=== PATIENT | male | born 1950 | race Caucasian/White ===

== ENCOUNTER → 2018-06-22 00:38 | Outpatient (CLI) | payer OTHER, SELFPAY ==
--- NOTE | 2018-06-22 07:45 | DI.REPORT_ITS ---
SYMPTOM/DIAGNOSIS: ? LIVER ENLARGED, ABD PAIN, R10.9 ABDOMINAL ULTRASOUND: Routine examination. Comparison CT is 09/14/16. Comparison ultrasound is The aorta and IVC are unremarkable. The liver has a normal appearance sonographically. The gallbladder is negative sonographically. There is a negative sonographic Brandt's sign. The common duct, kidneys and spleen are unremarkable except for bilateral renal cysts. The largest cyst is seen in the left kidney and measures 3.7 cm. Incidental note is made of a small accessory spleen measuring 1 cm. This was present on the CT scan from 09/14/16. The pancreas was not well visualized due to overlying bowel. IMPRESSION: No evidence of hepatomegaly. 2. Bilateral renal cysts.
== END ==
PROVIDERS: PCP Emergency Medicine; Visit Provider Emergency Medicine
DX: R10.9 Unspecified abdominal pain (principal); N28.1 Cyst of kidney, acquired
CPT/HCPCS: 76700

== ENCOUNTER 2018-12-15 10:31 | Outpatient (CLI) | payer OTHER, SELFPAY ==
[2018-12-15 13:32] LABS: Anion Gap 9.4 mmol/L (3-11); BUN 17 mg/dL (7-18); CO2 28.6 mmol/L (21.0-32.0); CREATININE 1.01 mg/dL (0.70-1.30); Calcium 9.2 mg/dL (8.5-10.1); Chloride 102 mmol/L (98-107); Glucose 115 mg/dL (70-100); Potassium 4.3 mmol/L (3.5-5.1); Sodium 140 mmol/L (136-145); Uric Acid 4.7 mg/dL (3.5-7.2)
== END 2018-12-15 10:51 ==
PROVIDERS: PCP Emergency Medicine; Visit Provider Emergency Medicine
DX: I10 Essential (primary) hypertension (principal); M10.9 Gout, unspecified
CPT/HCPCS: 36415; 80048; 84550

== ENCOUNTER 2019-04-30 01:33 | Outpatient (CLI) | payer OTHER, SELFPAY ==
--- NOTE | 2019-04-30 11:00 | DI.US_ITS ---
SYMPTOM/DIAGNOSIS: F/U STONE, N20.0 RENAL ULTRASOUND: Comparison is made with 06/22/18. The right kidney measures 10.4 cm. long. The left kidney measures 10.7 cm. long. There are again seen multiple bilateral renal cysts, the largest on the right measures 2.6 by 3.2 by 2.7 cm. The largest on the left measures 3.4 by 4.1 by 3.2 cm. No solid renal mass, calculi or obstruction is seen. There is symmetric blood flow to the kidneys. The prevoid urinary bladder volume is 67 cc's. Both ureteral jets were visualized. The postvoid urinary bladder volume is 35 cc's. The prostatic volume is 78 cc's. IMPRESSION: 1. Bilateral renal cysts. 2. Enlarged prostate gland.
== END 2019-04-30 01:53 ==
PROVIDERS: PCP Emergency Medicine; Visit Provider Urology
DX: N20.0 Calculus of kidney (principal); N40.0 Benign prostatic hyperplasia without lower urinary tract symptoms; N28.1 Cyst of kidney, acquired
CPT/HCPCS: 76770

== ENCOUNTER 2019-06-22 09:41 | Outpatient (CLI) | payer OTHER, SELFPAY ==
[2019-06-22 11:39] LABS: Hemoglobin A1C 5.7 % (4.5-6.2)
[2019-06-23 09:59] LABS: PSA, Diagnostic 1.7 ng/ml (0-4.5)
== END 2019-06-22 10:01 ==
PROVIDERS: PCP Emergency Medicine; Visit Provider Emergency Medicine
DX: Z00.00 Encounter for general adult medical examination without abnormal findings (principal); E11.9 Type 2 diabetes mellitus without complications; C61 Malignant neoplasm of prostate
CPT/HCPCS: 36415; 83036; 84153

== ENCOUNTER 2019-08-03 07:54 | Outpatient (CLI) | payer OTHER, SELFPAY ==
[2019-08-03 09:23] LABS: Calculated LDL 167 mg/dL; Cholesterol 243 mg/dL (50-200); HDL Cholesterol 67 mg/dL (40-60); Triglyceride 48 mg/dL (30-150)
== END 2019-08-03 08:14 ==
PROVIDERS: PCP Emergency Medicine; Visit Provider Emergency Medicine
DX: Z00.00 Encounter for general adult medical examination without abnormal findings (principal); Z13.220 Encounter for screening for lipoid disorders
CPT/HCPCS: 36415; 80061

== ENCOUNTER 2019-12-21 07:00 | Outpatient (CLI) | payer OTHER, SELFPAY ==
[2019-12-21 13:26] LABS: TSH 0.71 uIU/mL (0.36-3.74)
== END 2019-12-21 07:20 ==
PROVIDERS: PCP Emergency Medicine; Visit Provider Emergency Medicine
DX: E03.9 Hypothyroidism, unspecified (principal)
CPT/HCPCS: 36415; 84443

== ENCOUNTER 2020-05-12 03:54 | Outpatient (CLI) | payer OTHER, SELFPAY ==
--- NOTE | 2020-05-12 06:45 | DI.US_ITS ---
EXAM: US RENAL CLINICAL HISTORY: monitor known stones,BILAT KIDNEY STONES,N20.0 TECHNIQUE: Ultrasound performed using standard protocol. COMPARISON: CT RENAL COLIC WO CONTRAST from 09/14/2016 US US renal from 04/30/2019 FINDINGS: Renal ultrasound was performed according to the usual protocol. There are multiple bilateral renal c ysts as noted on prior studies which all appear to be simple cysts, largest is the left kidney measur ing about 4 cm in greatest diameter. There is no evidence of hydronephrosis. There are couple of tiny echogenic foci seen in each kidney but posterior acoustic shadowing is not seen to confirm renal calculi. Prostate is enlarged with prostatic volume estimated at 92 cc. Ureteral jets are noted bilaterally. Pre and postvoid bladder volume 191 cc and 27 cc respectively. IMPRESSION: No evidence of urinary tract obstruction. Multiple bilateral renal cysts, no renal calculi confirmed on this study. DATA REPOSITORY:
== END 2020-05-12 04:14 ==
PROVIDERS: PCP Emergency Medicine; Visit Provider Urology
DX: N20.0 Calculus of kidney (principal); N28.1 Cyst of kidney, acquired; N40.0 Benign prostatic hyperplasia without lower urinary tract symptoms
CPT/HCPCS: 76770

== ENCOUNTER 2020-06-23 20:43 | Outpatient (REF) | payer OTHER, MEDICARE, SELFPAY ==
[2020-06-23 22:07] LABS: Bilirubin, Total 0.6 mg/dL (0.2-1.0)
== END 2020-06-23 21:03 ==
LOC: LBN 20:43
PROVIDERS: PCP Emergency Medicine; Visit Provider Emergency Medicine
DX: R17 Unspecified jaundice (principal)
CPT/HCPCS: 82247

== ENCOUNTER 2021-01-29 11:52 | Outpatient (CLI) | payer OTHER, SELFPAY ==
--- NOTE | 2021-01-29 11:00 | DI.RAD_ITS ---
EXAM: XR FOOT RT COMPLETE CLINICAL HISTORY: R foot pain. TECHNIQUE: 2D digital imaging was performed. COMPARISON: No exams were available for comparison FINDINGS: There is no evidence of fracture or diastasis of the Lisfranc joint. There are advanced degenerative changes at metatarsophalangeal joint of the great toe. Sesamoid bone is noted on the medial aspect of the foot in the distal tibialis posterior tendon, just proximal to the navicular tuberosity. IMPRESSION: Advanced degenerative changes evident at the great toe metatarsophalangeal joint. DATA REPOSITORY: RADIATION DOSE DELIVERED:
== END 2021-01-29 11:53 | disposition home or self-care (01) ==
LOC: DIORS 11:52
PROVIDERS: PCP Emergency Medicine; Referring Provider Emergency Medicine; Visit Provider Physician Assistant
DX: M19.071 Primary osteoarthritis, right ankle and foot (principal)
CPT/HCPCS: 73630

== ENCOUNTER 2021-07-09 02:53 | Outpatient (CLI) | payer OTHER, SELFPAY ==
[2021-07-09 10:57] LABS: Anion Gap 10.5 mmol/L (3-11); BUN 12 mg/dL (7-18); CO2 24.5 mmol/L (21.0-32.0); CREATININE 0.9 mg/dL (0.70-1.30); Calcium 8.7 mg/dL (8.5-10.1); Chloride 101 mmol/L (98-107); Glucose 111 mg/dL (74-106); Potassium 4.1 mmol/L (3.5-5.1); Sodium 136 mmol/L (136-145); Uric Acid 4.7 mg/dL (3.5-7.2)
== END 2021-07-09 02:54 | disposition home or self-care (01) ==
LOC: LBO 02:53
PROVIDERS: PCP Emergency Medicine; Visit Provider Emergency Medicine
DX: I10 Essential (primary) hypertension (principal); M10.9 Gout, unspecified
CPT/HCPCS: 36415; 80048; 84550

== ENCOUNTER 2023-01-09 02:59 | Outpatient (CLI) | payer OTHER, SELFPAY ==
[2023-01-09 09:55] LABS: HCT 44.8 % (40.0-50.0); HGB 14.7 g/dL (13.5-17.5); MCH 30.6 pg (27.0-33.0); MCHC 32.8 % (32.0-36.0); MCV 93 fL (80-95); MPV 10.1 fL (8.0-11.0); Platelet Count 275 10^3/uL (130-400); RBC 4.81 10^6/uL (4.36-5.78); RDW 13.2 % (11.8-14.1); RDW-SD 45.2 fL; WBC 7.08 10^3/uL (4.4-10.8)
[2023-01-09 11:23] LABS: ALT 19 U/L (16-63); AST 13 U/L (15-37); Alkaline Phosphatase 73 U/L (46-116); Anion Gap 9.2 mmol/L (3-11); BUN 19 mg/dL (7-18); Bilirubin, Total 0.5 mg/dL (0.2-1.0); CO2 27.8 mmol/L (21.0-32.0); Calcium 9.1 mg/dL (8.5-10.1); Calculated LDL 171 mg/dL (<100); Chloride 105 mmol/L (98-107); Cholesterol 251 mg/dL (<200); Estimated GFR 80.97 (mL/min/1.73m2); Glucose 117 mg/dL (74-106); HDL Cholesterol 68 mg/dL (40-60); Potassium 4.2 mmol/L (3.5-5.1); Sodium 142 mmol/L (136-145); TSH (W/Ref FT4) 0.85 uIU/mL (0.36-3.74); Total Protein 7.2 g/dL (6.4-8.2); Triglyceride 64 mg/dL (<150)
[2023-01-09 18:09] LABS: PSA, Screening 1.1 ng/mL (<=6.5)
== END 2023-01-09 03:00 | disposition home or self-care (01) ==
LOC: LBO 02:59
PROVIDERS: PCP Nurse Practitioner Family; Visit Provider Nurse Practitioner Family
DX: Z00.00 Encounter for general adult medical examination without abnormal findings (principal); E78.5 Hyperlipidemia, unspecified; I10 Essential (primary) hypertension; E04.2 Nontoxic multinodular goiter; E05.90 Thyrotoxicosis, unspecified without thyrotoxic crisis or storm; M10.9 Gout, unspecified; G47.33 Obstructive sleep apnea (adult) (pediatric); R31.9 Hematuria, unspecified; Z12.5 Encounter for screening for malignant neoplasm of prostate
CPT/HCPCS: 36415; 80053; 80061; 84153; 85027; 84443

== ENCOUNTER 2023-01-09 15:12 | Outpatient (CLI) | payer OTHER, SELFPAY ==
--- NOTE | 2023-01-09 | DI.RAD_ITS ---
Exam(s) XR RIBS LT W PA LAT CHEST EXAM: XR RIBS LT W PA LAT CHEST CLINICAL HISTORY: LT RIB PAIN, R07.81, FALL INJURY LT ANT RIB AT NIPPLE LINE, ? FX TECHNIQUE: 2D digital imaging was performed. Images are obtained. COMPARISON: CR PORTABLE CHEST ONE VIEW from 04/01/2016 FINDINGS: MEDIASTINUM: Normal. HEART: Normal. PULMONARY VASCULATURE: Normal. LUNGS: Clear. Note is again made of an azygos lobe. PLEURAL SPACE: No pleural effusion or pneumothorax. BONE:Within normal limits for the patient's age. LEFT RIBS: Normal. OTHER FINDINGS:Normal. IMPRESSION: 1. No acute pulmonary findings. 2. Unremarkable left ribs. DATA REPOSITORY: RADIATION DOSE DELIVERED:
--- NOTE | 2023-01-09 | DI.RAD_ITS ---
Exam(s) XR WRIST RT COMPL NAVICULAR EXAM: XR WRIST RT COMPL NAVICULAR CLINICAL HISTORY: PAIN RT WRIST, M25.531, FALL, PAIN BASE THENAR EMINENCE, BASE OF HAND. TECHNIQUE: 2D digital imaging was performed of the right wrist. Four views were obtained. Scaphoid, PA, lateral and oblique views were obtained. COMPARISON: No exams were available for comparison FINDINGS: BONES: No acute fracture is present. No bony destructive lesion is seen. JOINTS: The carpal bones are normally aligned. Moderate degenerative changes are seen at the 1st CMC joint with joint space narrowing and bony hypertrophy. SOFT TISSUE: Normal. IMPRESSION: No acute fracture or dislocation. DATA REPOSITORY: RADIATION DOSE DELIVERED:
== END 2023-01-09 15:32 ==
LOC: DI 15:13
PROVIDERS: PCP Nurse Practitioner Family; Visit Provider Physician Assistant Medical
DX: M25.531 Pain in right wrist (principal); M18.11 Unilateral primary osteoarthritis of first carpometacarpal joint, right hand; R07.81 Pleurodynia; W19.XXXA Unspecified fall, initial encounter
CPT/HCPCS: 71046; 71100; 73110

== ENCOUNTER 2024-01-06 05:19 | Outpatient (CLI) | payer OTHER, SELFPAY ==
[2024-01-06 10:22] LABS: HCT 43.5 % (40.0-50.0); HGB 14.1 g/dL (13.5-17.5); MCH 29.6 pg (27.0-33.0); MCHC 32.4 % (32.0-36.0); MCV 91 fL (80-95); Platelet Count 263 10^3/uL (130-400); RBC 4.76 10^6/uL (4.36-5.78); RDW-SD 44.1 fL; WBC 5.48 10^3/uL (4.4-10.8)
[2024-01-06 10:36] LABS: Hemoglobin A1C 5.6 % (<5.7)
[2024-01-06 11:32] LABS: Anion Gap 7.9 mmol/L (3-11); BUN 13 mg/dL (7-18); CO2 30.1 mmol/L (21.0-32.0); CREATININE 1.1 mg/dL (0.70-1.30); Calcium 9.4 mg/dL (8.5-10.1); Calculated LDL 217 mg/dL (<100); Chloride 104 mmol/L (98-107); Cholesterol 284 mg/dL (<200); Estimated GFR 71.77 (mL/min/1.73m2); Glucose 111 mg/dL (74-106); HDL Cholesterol 55 mg/dL (40-60); Potassium 4.3 mmol/L (3.5-5.1); Sodium 142 mmol/L (136-145); TSH (W/Ref FT4) 0.48 uIU/mL (0.36-3.74); Triglyceride 63 mg/dL (<150)
[2024-01-06 11:42] LABS: Uric Acid 4.7 mg/dL (3.5-7.2)
== END 2024-01-06 05:20 | disposition home or self-care (01) ==
LOC: LBO 05:19
PROVIDERS: PCP Nurse Practitioner Family; Visit Provider Nurse Practitioner Family
DX: I10 Essential (primary) hypertension (principal); M10.9 Gout, unspecified; K21.9 Gastro-esophageal reflux disease without esophagitis; E78.5 Hyperlipidemia, unspecified; G47.33 Obstructive sleep apnea (adult) (pediatric); E04.2 Nontoxic multinodular goiter
CPT/HCPCS: 36415; 80048; 80061; 85027; 83036; 84443; 84550

== ENCOUNTER 2024-11-08 20:45 | Emergency (ER) | payer OTHER, SELFPAY ==
[2024-11-08 20:55] VITALS: BP 159/64; PULSE 103; RESP 18; TEMP 36.2; O2SAT 99
[2024-11-08 21:15] VITALS: PULSE 90; RESP 16; O2SAT 99
--- NOTE | 2024-11-08 21:15 | W.ED.GENAD ---
Discharge Plan Disposition Patient Disposition: Home Discharge Details Clinical Impression: Upper back pain Primary Care Provider: Tata Phelps ED Provider: Janes Dietrich Home Meds and New Rx's Prescriptions: Continued vit C,E,Zn,Zy--ima-zeax 250-2.5-0.5 mg capsule 1 cap PO BID magnesium glycinate 100 mg tablet 400 mg PO BID colchicine [Colcrys] 0.6 mg tablet 0.6 mg PO BID Qty: 20 1RF tamsulosin 0.4 mg capsule 0.4 mg PO DAILY Qty: 90 3RF Probiotic 1 EACH capsule 1 ea PO DAILY Patient Comments: diphenhydramine HCl [Benadryl] 25 MG capsule 2 tab PO as directed Patient Comments: 01/16/18-PRN only/pps cholecalciferol (vitamin D3) 1,000 UNIT capsule 1,000 unit PO DAILY acetaminophen [Tylenol Extra Strength] 500 MG tablet 500 mg PO daily prn epinephrine [EpiPen 2-Skip] 0.3 mg/0.3 mL auto-injector 0.3 mg IM ONCE Qty: 1 4RF allopurinol [Zyloprim] 100 mg tablet 200 mg PO DAILY Qty: 180 3RF amlodipine 5 mg tablet 5 mg PO DAILY Qty: 90 4RF montelukast [Singulair] 10 mg tablet 10 mg PO HS Qty: 90 4RF Discharge Instructions Additional Instructions: He was seen in the emergency department for your upper back pain. As we discussed if you pass out develop chest pain shortness of breath or begin vomiting please return to the emergency department. Otherwise follow-up as needed with your primary care provider next week. HPI General Date/Time Provider Initiated Documentation: 11/08/24 21:15. HPI Narrative: MDM This is an overall very well-appearing afebrile and initially tachycardic 74-year-old male with transient upper back pain resolved reassuring against multiple dangerous pathologies for which patient will be discharged with empiric trial of expectant outpatient management. No chest pain to suggest ACS. I considered PE however the patient was not feeling short of breath and not having chest pain and used hypoxic so I felt that the risks of a D-dimer outweighed the benefits. No cough nor fevers to suggest pneumonia as I did not feel that the patient required a chest x-ray. No pain out of proportion to suggest necrotizing soft tissue infection. Patient had no nuchal rigidity so I was not suspicious for meningitis. No acute neurological deficits to suggest CVA so I did not feel the patient required an MRI nor would be a candidate for tPA. No rash to back to suggest zoster. No tearing chest pain to suggest aortic dissection. No vomiting to suggest increased risk for esophageal rupture. Equal breath sounds bilaterally & no trauma so my suspicion is low for pneumothorax. Patient is not a dialysis patient and in the absence of chest pain I am not suspicious for tamponade. On repeat assessment patient's heart rate had normalized to 90 without intervention. It is certainly possible that he could have had a musculoskeletal strain which responded to prehospital acetaminophen is administered by his . Alternatively it is possible that he had some transient irritation in his esophagus secondary to his pills causing referred pain. Patient and I discussed that he should return to the emergency department if he developed any chest pain shortness of breath fevers abdominal pain or if he could not tolerate p.o. Otherwise I advised PCP follow-up as needed next week. He understood his return indications. HPI This is a 74-year-old male with history of hypertension arrived to the emergency department in the setting of transient upper back pain. Patient reports that he took his home medications this evening and then developed pain in his upper back and neck. Says his pain was not radiating. He denies any recent trauma and any strenuous recent activities. His gave him some acetaminophen. He lie down and transiently felt short of breath but this improved his pain in his back. Shortness of breath resolved. He has had no recent fevers. He occasionally has a cough in the morning but has not had a persistent cough. He denies routine tobacco, ethanol, and illicits. He denies chest pain nausea and vomiting. No recent changes in his medications. No fevers dysuria or frequency. Exam General: Well-appearing in no acute distress speaking in complete sentences. Head: Normocephalic, atraumatic. Eye: Extraocular eye movements intact. No conjunctival injection. No scleral icterus. Ear, nose, mouth, throat: Grossly normal inspection. Normal voice, handling secretions normally. Neck: Trachea midline. No rash to neck. Cardiovascular: Well-perfused distal extremities. Back: No midline thoracic nor lumbar spinal tenderness. No step-offs. No deformities. Respiratory: Nonlabored respiration. Gastrointestinal: Nondistended abdomen. Musculoskeletal: No edema. Moving all 4 extremities spontaneously. Skin: Normal for age and race, grossly normal temperature and turgor. No acute rash. Neurologic: Alert and appropriate, no apparent acute deficits. GCS 15. 5 out of 5 bilateral upper extremity strength. Psychiatric: Mood and manner are appropriate. Grooming and personal hygiene are appropriate. Related Data Home Medications ?Medication ?Instructions ?Recorded ?Confirmed Lactobacillus acidophilus 10 1 ea PO DAILY 04/08/14 11/08/24 billion cell capsule (Probiotic) diphenhydramine HCl 25 mg capsule 2 tab PO as directed 04/16/16 11/08/24 (Benadryl) acetaminophen 500 mg tablet 500 mg PO daily prn 06/11/17 11/08/24 (Tylenol Extra Strength) cholecalciferol (vitamin D3) 25 1,000 unit PO DAILY 06/11/17 11/08/24 mcg (1,000 unit) capsule magnesium glycinate 100 mg (as 400 mg PO BID 06/22/19 11/08/24 glycinate) tablet vit 1 cap PO BID 06/22/19 11/08/24 C,E,zinc,St-aormm-3-lutein-zeaxanthin 250 mg-2.5 mg-0.5 mg capsule colchicine 0.6 mg tablet (Colcrys) 0.6 mg PO BID #20 tabs 08/03/19 11/08/24 epinephrine 0.3 mg/0.3 mL 0.3 mg (0.3 mL) IM ONCE #1 pen 05/14/22 11/08/24 injection, auto-injector (EpiPen 2-Skip) allopurinol 100 mg tablet 200 mg (2 x 100 mg) PO DAILY #180 01/06/24 11/08/24 (Zyloprim) tab-caps tamsulosin 0.4 mg capsule 0.4 mg PO DAILY #90 tab-caps 05/12/24 11/08/24 amlodipine 5 mg tablet 5 mg PO DAILY #90 tab-caps 08/05/24 11/08/24 montelukast 10 mg tablet 10 mg PO HS #90 tabs 08/05/24 11/08/24 (Singulair) Previous Rx's ?Medication ?Instructions ?Recorded colchicine 0.6 mg tablet (Colcrys) 0.6 mg PO BID #20 tabs 08/03/19 epinephrine 0.3 mg/0.3 mL 0.3 mg (0.3 mL) IM ONCE #1 pen 05/14/22 injection, auto-injector (EpiPen 2-Skip) allopurinol 100 mg tablet 200 mg (2 x 100 mg) PO DAILY #180 01/06/24 (Zyloprim) tab-caps tamsulosin 0.4 mg capsule 0.4 mg PO DAILY #90 tab-caps 05/12/24 amlodipine 5 mg tablet 5 mg PO DAILY #90 tab-caps 08/05/24 montelukast 10 mg tablet 10 mg PO HS #90 tabs 08/05/24 (Singulair) Allergies Allergy/AdvReac Type Severity Reaction Status Date / Time adhesive tape Allergy Intermediate hives Verified 11/08/24 20:59 NSAIDS (Non-Steroidal Allergy Other (See Verified 11/08/24 20:59 Anti-Inflamma Comment) COURTNEY Inhibitors AdvReac Severe ANGIOEDEMA Verified 11/08/24 20:59 WITH ARB ARB-Angiotensin Receptor AdvReac Severe ANGIOEDEMA Verified 11/08/24 20:59 Antagonist Beta-Blockers AdvReac Severe cannot be Verified 11/08/24 20:59 (Beta-Adrenergic Bloc used with epi! [id number] Reductase AdvReac Unknown MYALGIAS Verified 11/08/24 20:59 Inhibitor (Nlmcepx-Dck-Vqq Reductase Inhibitor) General Stated Complaint: Nk/Back Pain DALTON: 3 Course Vital Signs Vital signs: Vital Signs Temperature 36.2 C L 11/08/24 20:55 Pulse 103 H 11/08/24 20:55 Respiratory Rate 18 11/08/24 20:55 Blood Pressure 159/64 H 11/08/24 20:55 Pulse Oximetry 99 11/08/24 20:55 Temperature 36.2 C L 11/08/24 20:55 Temperature Source Tympanic 11/08/24 20:55 Pulse 103 H 11/08/24 20:55 Respiratory Rate 18 11/08/24 20:55 Blood Pressure 159/64 H 11/08/24 20:55 Blood Pressure Position Sitting 11/08/24 20:55 Pulse Oximetry 99 11/08/24 20:55 Oxygen Delivery Method Room Air 11/08/24 20:55 Oxygen Flow Rate 0 11/08/24 20:55 Medical Decision Making Quality:SDOH Health Related Social Needs: No Data to Display PFSH All Active Problems (Updated 11/08/24 @ 21:16 by Janes Dietrich MD) Upper back pain (Acute) Sensorineural hearing loss (Acute) Uses hearing aid (Acute) Asymmetrical sensorineural hearing loss (Acute) Bunionette of right foot (Acute) Hallux valgus (acquired), right foot (Acute) Hammer toe of right foot (Acute) Essential hypertension (Acute 09/27/13) Annual physical exam (Acute) Varicose eczema (Acute) varicosity right upper chest Angioedema (Acute 02/16/16) INTUBATED. NO ARB OR COURTNEY MEDS!!! NO NSAIDS. NO BETA BLOCKERS Bilateral kidney stones (Acute 06/16/17) Diverticulosis of colon without diverticulitis (Acute) Esophageal reflux (Acute) endoscopy 2001-reflux and HH Gout (Acute) Hearing loss (Acute) A.S. secondary to skull fx Hyperlipidemia (Acute) Impaired fasting glucose (Acute 07/14/12) Intention tremor (Acute) Kidney stone (Acute) Non-toxic multinodular goiter (Acute) Renal cyst (Acute 06/16/17) Seborrheic keratosis (Acute 02/18/18) Severe obstructive sleep apnea (Acute 07/08/16) Unilateral inguinal hernia (Acute) left; repaired Medical History (Updated 11/08/24 @ 21:16 by Janes Dietrich MD) Hematuria, unspecified neg. W/U in 2000 History of tobacco use Quit in 1987 Sleep apnea Surgical History (Updated 12/23/22 @ 13:21 by Tata Phelps NP) History of esophagogastroduodenoscopy Status post inguinal hernia repair Status post vasectomy colonoscopy (08/13/16) Vasectomy Repair of inguinal hernia (01/28/07) LEFT- [facility] DR KAE SHELTON - MAC 2001 CYSTO-URETHROSCOPY 09/15/16;10/17/16 X 3;10/31/16 X 3 Family History Mother Myocardial infarction Breast cancer Father Personal history of malignant neoplasm LUNG Lung cancer Brother , ACCIDENTAL at age 17. No problems noted. Maternal Grandfather , ACCIDENTAL at age 82. No problems noted. Paternal Grandfather No problems noted. Maternal Grandmother Heart disease Stroke Cancer Paternal Grandmother Diabetes Social History (Updated 12/30/22 @ 17:40 by Vane Miller) Smoking/Tobacco Use Status: Former Tobacco Use tobacco type: cigarettes Quit Date: 11/17/87 Tobacco: How many years used: 15 Quit status: quit date established Second Hand Exposure: Yes Smoking risk assessment performed?: Yes Alcohol Intake: current Alcohol Intake frequency: a few times a week Alcohol type: beer, wine and hard liquor Drug use: Never Substance use type: former substance user Caregiver/Support person: Yes Household members: spouse Housing: house Communication Needs: Hard of Hearing Do you need help understanding health information?: Rarely Pets and animals: Yes Pets and animals: cat(s) Sexually active: Yes Do you think of yourself as: straight/heterosexual Current gender identity: male What is your relationship status?: How often do you talk on the phone with friends or family?: once per week How often do you get together with friends or relatives?: once per week How often do you attend catholic or nondenominational services?: decline to answer Do you belong to any clubs or organized social groups?: no Panel score (0-1 are the most socially isolated patients): 1 What type of physical activity do you participate in: walking Duration: 15-30 minutes/day Frequency: 3-4 times per week Emily/Orthodoxy: No preference Special emily needs: No Seatbelt use: always Helmet use: No Drive intox or ride w/intox pile driver: No Do you feel safe in your relationship?: Yes
== END 2024-11-08 21:16 | disposition home or self-care (01) ==
LOC: ER 21:21
PROVIDERS: Emergency Provider Emergency Medicine; PCP Nurse Practitioner Family
DX: M54.6 Pain in thoracic spine (principal); M54.2 Cervicalgia; I10 Essential (primary) hypertension; Z87.891 Personal history of nicotine dependence
CPT/HCPCS: 99283

== ENCOUNTER 2024-12-31 00:55 | Outpatient (CLI) | payer OTHER, SELFPAY ==
[2024-12-31 12:48] LABS: HCT 42.4 % (40.0-50.0); HGB 13.5 g/dL (13.5-17.5); MCH 29.5 pg (27.0-33.0); MCHC 31.8 % (32.0-36.0); MCV 93 fL (80-95); MPV 10.5 fL (8.0-11.0); Platelet Count 320 10^3/uL (130-400); RBC 4.58 10^6/uL (4.36-5.78); RDW 13.3 % (11.8-14.1); RDW-SD 44.8 fL; WBC 7.59 10^3/uL (4.4-10.8)
[2024-12-31 13:21] LABS: ALT 20 U/L (16-63); AST 19 U/L (15-37); Albumin 3.8 g/dL (3.4-5.0); Alkaline Phosphatase 71 U/L (46-116); Anion Gap 7.7 mmol/L (3-11); BUN 13 mg/dL (7-18); Bilirubin, Total 0.56 mg/dL (0.2-1.0); CO2 30.3 mmol/L (21.0-32.0); CREATININE 1.1 mg/dL (0.70-1.30); Calcium 9.1 mg/dL (8.5-10.1); Calculated LDL 171 mg/dL (<100); Chloride 105 mmol/L (98-107); Cholesterol 248 mg/dL (<200); Estimated GFR 71.32 (mL/min/1.73m2); Glucose 99 mg/dL (74-106); HDL Cholesterol 60 mg/dL (40-60); Potassium 4.2 mmol/L (3.5-5.1); Sodium 143 mmol/L (136-145); TSH (W/Ref FT4) 0.53 uIU/mL (0.36-3.74); Triglyceride 89 mg/dL (<150)
== END 2024-12-31 00:56 | disposition home or self-care (01) ==
PROVIDERS: PCP Nurse Practitioner Family; Visit Provider Nurse Practitioner Family
DX: Z00.00 Encounter for general adult medical examination without abnormal findings (principal); I10 Essential (primary) hypertension; E78.5 Hyperlipidemia, unspecified; E04.2 Nontoxic multinodular goiter; K21.9 Gastro-esophageal reflux disease without esophagitis; M10.9 Gout, unspecified
CPT/HCPCS: 36415; 80053; 80061; 85027; 84443